=== PATIENT | male | born 1985 | race Hispanic/Latino ===

== ENCOUNTER 2017-04-27 13:53 | Emergency (ER) | payer OTHER ==
[2017-04-27 14:07] VITALS: BP 127/75; PULSE 78; RESP 18; TEMP 98; O2SAT 98; BMI 25.7
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
--- NOTE | 2017-04-27 15:13 | RAD ---
PROCEDURE: Radiographs of the Left Shoulder HISTORY: shoulder pain COMPARISON: No prior. FINDINGS: BONES: Normal. No fracture. JOINTS: Normal. Glenohumeral and acromioclavicular joints preserved. No osteoarthritis. SOFT TISSUES: Normal. OTHER FINDINGS: None. IMPRESSION: Normal radiographs of the left shoulder.
== END 2017-04-27 15:42 | disposition home or self-care (01) ==
LOC: ED 13:53
DX: T14.8 Other injury of unspecified body region (principal); W22.8XXA Striking against or struck by other objects, initial encounter; Y92.89 Other specified places as the place of occurrence of the external cause; Y99.0 Civilian activity done for income or pay
CPT/HCPCS: 73030; 73090; 73130; 96372; 99284; J1885

== ENCOUNTER 2018-02-05 09:15 | Emergency (ER) | payer OTHER ==
[2018-02-05 09:16] VITALS: BMI 25.7
[2018-02-05 09:44] VITALS: TEMP 98.6
[2018-02-05] MEDS ORDERED: Oxycodone/Acetaminophen 5/325 mg Tab PO STA (10:14)
[2018-02-05] MEDS ORDERED: Fluorescein 1 mg Ophthalmic Strip OU ONE (10:14)
[2018-02-05] MEDS ORDERED: Tetracaine 0.5% Ophth 2 ML BOTTLE OU STA (10:14)
--- NOTE | 2018-02-05 10:14 | ED PDOC ---
Arrival/HPI - General Chief Complaint: Pain, Chronic Time Seen by Provider: 02/05/18 10:05 Historian: Patient - History of Present Illness Narrative History of Present Illness (Text): 02/05/18 10:05 33 y/o male, pmh including dental abscess, nkda, c/o rt. sided headache and rt. eye discomfort started 4am this morning without fall or trauma. Pt. stated that he went to sleep after he had some drink, went to bed, woke up this morning with rt. eye tearing and pain, admits irritation on the rt. eye with headache, no palpitation, no rash, no other medical or psychological complaints. Past Medical History - Provider Review Nursing Documentation Reviewed: Yes - Past History Past History: No Previous - Infectious Disease Hx of Infectious Diseases: None - Tetanus Immunization Tetanus Immunization: Up to Date - Past Medical History Past Medical History: Non-Contributing - Cardiac Hx Cardiac Disorders: No - Pulmonary Hx Respiratory Disorders: No - Neurological Hx Neurological Disorder: No - HEENT Hx HEENT Disorder: No - Renal Hx Renal Disorder: Yes Other/Comment: RENAL COLIC - Endocrine/Metabolic Hx Endocrine Disorders: No - Hematological/Oncological Hx Blood Disorders: No - Integumentary Hx Dermatological Disorder: Yes Hx Cellulitis: Yes - Musculoskeletal/Rheumatological Hx Musculoskeletal Disorders: Yes Other/Comment: CERVICAL RADICULOPATHY - Gastrointestinal Hx Gastrointestinal Disorders: No - Genitourinary/Gynecological Hx Genitourinary Disorders: No - Psychiatric Hx Psychophysiologic Disorder: Yes Hx Depression: Yes Hx Substance Use: Yes - Past Surgical History Past Surgical History: No Previous - Anesthesia Hx Anesthesia: No - Suicidal Assessment Feels Threatened In Home Enviroment: No Family/Social History - Physician Review Nursing Documentation Reviewed: Yes Family/Social History: Unknown Family HX Smoking Status: Heavy Smoker > 10 Cigarettes Daily Hx Alcohol Use: No Hx Substance Use: Yes Hx Substance Use Treatment: No Allergies/Home Meds Allergies/Adverse Reactions: Allergies No Known Allergies Allergy (Verified 02/05/18 09:38) Home Medications: Home Meds Medication Instructions Recorded Confirmed No Known Home Med 04/27/17 02/05/18 Review of Systems - Review of Systems Constitutional: absent: Fatigue, Fevers Eyes: Other (rt. eye pain). absent: Vision Changes ENT: absent: Hearing Changes Respiratory: absent: SOB Cardiovascular: absent: Chest Pain Gastrointestinal: absent: Abdominal Pain, Nausea, Vomiting Skin: absent: Rash, Pruritis Neurological: Headache. absent: Dizziness Psychiatric: absent: Anxiety, Depression Physical Exam Vital Signs Reviewed: Yes Vital Signs Temp Pulse Resp BP Pulse Ox 02/05/18 11:22 75 18 137/79 100 02/05/18 09:38 98.6 F 77 16 139/83 98 Temperature: Afebrile Blood Pressure: Normal Pulse: Regular Respiratory Rate: Normal Appearance: Positive for: Well-Appearing, Non-Toxic, Comfortable Pain Distress: None Mental Status: Positive for: Alert and Oriented X 3 - Systems Exam Head: Present: Atraumatic, Normocephalic Pupils: Present: PERRL Extroacular Muscles: Present: EOMI Conjunctiva: Present: Other (Eyes: left eye vision w/o correction 20/25 vs. rt. eye vision w/o correction 20/40 , bilateral vision w/o correction is 20/30 , no hyphema or subconjunctival hemorrhage, no visible foreign bodies noted on the rt. eye with eyelids inversion and eversion, negative rj sign on the rt. eye and no visible corneal abrasion/laceration either, rt. eye intraocular pressure is 20, there is mild rt. upper eyelid swelling. ) Mouth: Present: Moist Mucous Membranes, Other (there is no gingival abscess or gingivitis) Neck: Present: Normal Range of Motion Respiratory/Chest: Present: Clear to Auscultation, Good Air Exchange. No: Respiratory Distress, Accessory Muscle Use Cardiovascular: Present: Regular Rate and Rhythm, Normal S1, S2. No: Murmurs Abdomen: No: Tenderness, Distention, Peritoneal Signs Back: Present: Normal Inspection Upper Extremity: Present: Normal Inspection. No: Cyanosis, Edema Lower Extremity: Present: Normal Inspection. No: Edema Neurological: Present: GCS=15, Speech Normal, Motor Func Grossly Intact, Gait Normal, Memory Normal Skin: Present: Warm, Dry, Normal Color. No: Rashes Psychiatric: Present: Alert, Oriented x 3, Normal Insight, Normal Concentration Medical Decision Making ED Course and Treatment: 02/05/18 10:19 -CT head/orbital -Percocet for pain -Eye patch. -Observe and reassess 02/05/18 11:30 -Pain well controlled -Rt. eye show no corneal injury plus normal range intraocular pressure -CT Head: No acute intracranial abnormality. -CT orbit/facial: Mild right orbital proptosis and preseptal cellulitis. No evidence of postseptal cellulitis or subperiosteal abscess. Mild chronic right maxillary and ethmoid sinusitis. 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 Pt. will be placed as elopement as he didn't notify any of the ER staffs but all his belongings are gone. - RAD Interpretation Radiology Orders: 02/05/18 10:15 HEAD W/O CONTRAST [CT] Stat ORBITS/ FACIALS W/O CONTRAST [CT] Stat CT Head: HEMORRHAGE: No intracranial hemorrhage. BRAIN: Silva-white matter differentiation is preserved. There is no mass, mass effect or abnormal extra-axial fluid collection. There is no territorial infarction. VENTRICLES: The ventricles are normal in size, shape and configuration. CALVARIUM: The skull base and calvarium are no. PARANASAL SINUSES: Predominantly clear. MASTOID AIR CELLS: Predominantly clear. OTHER FINDINGS: None. IMPRESSION: No acute intracranial abnormality. CT Orbits/facials RIGHT ORBIT: RIGHT BONY ORBIT: No acute fracture. There is mild right orbital proptosis. RIGHT INTRAORBITAL STRUCTURES: Globe: Normal. Extraocular muscles: Normal. Post septal space: Normal. Optic Nerve: Normal. Lacrimal Apparatus: Normal. RIGHT PRESEPTAL SOFT TISSUES: There is mild right preseptal soft tissue swelling. LEFT ORBIT: LEFT BONY ORBIT: No acute fracture. LEFT INTRAORBITAL STRUCTURES: Globe: Normal. Extraocular muscles: Normal. Post septal space: Normal Optic Nerve: Normal. . Lacrimal Apparatus: Normal. LEFT PRESEPTAL SOFT TISSUES: Normal. OTHER: There is mild mucosal thickening in the right maxillary sinus and mild mucosal thickening in the right ethmoid air cells. IMPRESSION: Mild right orbital proptosis and preseptal cellulitis. No evidence of postseptal cellulitis or subperiosteal abscess. Mild chronic right maxillary and ethmoid sinusitis. Physician Allergist Immunologist: Radiologist - Medication Orders Current Medication Orders: Discontinued Medications Fluorescein Sodium (Ikkho-C-Njfgp A.T.) 1 mg OU ONCE ONE Stop: 02/05/18 10:15 Last Admin: 02/05/18 10:26 Dose: Oxycodone/Acetaminophen (Percocet 5/325 Mg Tab) 1 tab PO STAT STA Stop: 02/05/18 10:15 Last Admin: 02/05/18 10:28 Dose: 1 tab MAR Pain Assessment Document 02/05/18 10:28 GMD (Rec: 02/05/18 10:28 GMD [id number]) Pain Reassessment Is this a pain reassessment? No Presence of Pain Presence of Pain Yes Tetracaine HCl (Tetracaine 0.5% Ophth Soln) 1 drop OU STAT STA Stop: 02/05/18 10:15 Last Admin: 02/05/18 10:26 Dose: - PA / HOME INSPECTOR / Resident Statement / has reviewed & agrees with the documentation as recorded. Disposition/Present on Arrival - Present on Arrival Any Indicators Present on Arrival: No History of DVT/PE: No History of Uncontrolled Diabetes: No Urinary Catheter: No History of Decub. Ulcer: No History Surgical Site Infection Following: None - Disposition Have Diagnosis and Disposition been Completed?: Yes Diagnosis: Pain, eye, right, Non-compliance with treatment Disposition: ELOPEMENT - ER ONLY Disposition Time: 10:20 Condition: STABLE Forms: [employer] (Ukrainian)
[2018-02-05 11:23] VITALS: BP 137/79; PULSE 75; RESP 18; O2SAT 100
--- NOTE | 2018-02-05 11:26 | CT ---
PROCEDURE: CT HEAD WITHOUT CONTRAST. HISTORY: Acute onset headache COMPARISON: 07/03/2015. TECHNIQUE: Axial computed tomography images were obtained through the head/brain without intravenous contrast. Radiation dose: Total exam DLP = 893.72 mGy-cm. This CT exam was performed using one or more of the following dose reduction techniques: Automated exposure control, adjustment of the mA and/or kV according to patient size, and/or use of iterative reconstruction technique. FINDINGS: HEMORRHAGE: No intracranial hemorrhage. BRAIN: Silva-white matter differentiation is preserved. There is no mass, mass effect or abnormal extra-axial fluid collection. There is no territorial infarction. VENTRICLES: The ventricles are normal in size, shape and configuration. CALVARIUM: The skull base and calvarium are no. PARANASAL SINUSES: Predominantly clear. MASTOID AIR CELLS: Predominantly clear. OTHER FINDINGS: None. IMPRESSION: No acute intracranial abnormality.
--- NOTE | 2018-02-05 11:46 | CT ---
PROCEDURE: CT ORBITS WITHOUT CONTRAST. HISTORY: acute onset rt. eye pain, orbital cellulitis? COMPARISON: None available. TECHNIQUE: Axial CT images of the orbits were obtained. Coronal and sagittal reformats were generated. Radiation dose: Total exam DLP = 668.69 mGy-cm. This CT exam was performed using one or more of the following dose reduction techniques: Automated exposure control, adjustment of the mA and/or kV according to patient size, and/or use of iterative reconstruction technique. FINDINGS: RIGHT ORBIT: RIGHT BONY ORBIT: No acute fracture. There is mild right orbital proptosis. RIGHT INTRAORBITAL STRUCTURES: Globe: Normal. Extraocular muscles: Normal. Post septal space: Normal. Optic Nerve: Normal. Lacrimal Apparatus: Normal. RIGHT PRESEPTAL SOFT TISSUES: There is mild right preseptal soft tissue swelling. LEFT ORBIT: LEFT BONY ORBIT: No acute fracture. LEFT INTRAORBITAL STRUCTURES: Globe: Normal. Extraocular muscles: Normal. Post septal space: Normal Optic Nerve: Normal. . Lacrimal Apparatus: Normal. LEFT PRESEPTAL SOFT TISSUES: Normal. OTHER: There is mild mucosal thickening in the right maxillary sinus and mild mucosal thickening in the right ethmoid air cells. IMPRESSION: Mild right orbital proptosis and preseptal cellulitis. No evidence of postseptal cellulitis or subperiosteal abscess. Mild chronic right maxillary and ethmoid sinusitis.
== END 2018-02-05 11:53 | disposition left against medical advice (07) ==
LOC: ED 09:15
DX: H57.11 Ocular pain, right eye (principal)